=== PATIENT | male | born 1950 | race Caucasian/White ===

== ENCOUNTER 2023-12-10 13:58 | Emergency (ER) | payer OTHER ==
[~2023-12-10] VITALS: Ht 175.3 cm; Wt 69.2 kg
[2023-12-10 14:06] VITALS: BP 145/73; PULSE 72; RESP 16; O2SAT 96
== END 2023-12-10 15:03 | disposition left against medical advice (07) ==
LOC: ER 13:58
DX: Z00.00 Encounter for general adult medical examination without abnormal findings (principal); Z53.21 Procedure and treatment not carried out due to patient leaving prior to being seen by health care provider

== ENCOUNTER 2024-01-08 15:34 | Inpatient (IN) | payer OTHER ==
[~2024-01-08] VITALS: Ht 172.7 cm; Wt 62.5 kg
[2024-01-09] VITALS (7 sets, daily range): BP systolic 113–122; BP diastolic 70–71; PULSE 72–87; RESP 17–18; TEMP 98.3–98.7; O2SAT 96–98
[2024-01-09] MEDS ORDERED: ONDANSETRON HCL 4 MG/2 ML VIAL IV PRN (17:30)
[2024-01-09] MEDS ORDERED: MORPHINE SULFATE INJ 2 MG/ml SYRG IV PRN (17:30)
[2024-01-09] MEDS ORDERED: ACETAMINOPHEN 500 MG TAB PO PRN (17:30)
[2024-01-09] MEDS ORDERED: IPRATROPIUM BROM 0.5 MG/2.5ML INH SOL NEB PRN (17:30)
[2024-01-09] MEDS ORDERED: HYDROcodone-ACET 5/325MG TAB PO PRN (17:30)
[2024-01-09] MEDS ORDERED: ALBUTEROL SULF 2.5 MG/0.5ML(0.5%) NEB SOLN NEB PRN (17:30)
[2024-01-09] MEDS ORDERED: HALOPERIDOL LACTATE 5 MG/ML INJ VIAL IM ONE (22:15)
[2024-01-09] MEDS: HALOPERIDOL LACTATE 5 MG/ML INJ VIAL IM PRN (22:53)
[2024-01-10] VITALS (10 sets, daily range): BP systolic 113–153; BP diastolic 60–74; PULSE 70–93; RESP 16–21; TEMP 98.1–98.7; O2SAT 93–95
[2024-01-10 07:43] LABS: Chloride 105 mmol/L (98-107); Potassium 3.8 mmol/L (3.5-5.1); Sodium 136 mmol/L (136-145)
[2024-01-10 07:44] LABS: Anion Gap 4 (5-15); Calcium 9.4 mg/dL (8.7-10.4); Carbon Dioxide 27 mmol/L (20-30)
[2024-01-10 07:47] LABS: Basophils # (auto) 0 10 ^3/uL (0-0.2); Basophils % (auto) 0.7 % (0.0-2.0); Eosinophils # (auto) 0.3 10 ^3/uL (0-0.8); Eosinophils % (auto) 4.6 % (0.0-7.0); Hematocrit 37.2 % (41.0-53.0); Hemoglobin 13.3 g/dL (13.5-17.5); Lymphocytes # (auto) 1.3 10 ^3/uL (0.4-5.4); Lymphocytes % (auto) 20.2 % (10.0-50.0); Mean Corpuscular Hemoglobin 32.9 pg (28.0-32.0); Mean Corpuscular Hgb Conc. 35.8 g/dL (32.0-36.0); Mean Corpuscular Volume 91.8 fL (80.0-100.0); Monocytes # (auto) 0.6 10 ^3/uL (0-1.3); Neutrophils # (auto) 4.1 10 ^3/uL (1.6-8.6); Neutrophils % (auto) 65.5 % (37.0-80.0); Platelet Count (auto) 293 10^3/uL (140-450); Red Blood Cells 4.05 10^6/uL (4.5-5.90); Red Cell Distribution Width 13.2 % (11.8-14.3); White Blood Cell 6.3 10^3/uL (4.4-10.8)
[2024-01-10 07:49] LABS: Blood Urea Nitrogen 12 mg/dL (9-23); Glucose 94 mg/dL (74-106)
[2024-01-10 09:02] LABS: INR 1.08 (0.9-1.15); Partial Thromboplastin Time 30.5 SEC (24.5-34.5); Prothrombin Time 11.4 sec (9.3-11.8)
[2024-01-10] MEDS ORDERED: ATOR20TA PO (10:39)
[2024-01-10] MEDS ORDERED: LATA0.008 OP (10:39)
[2024-01-10] MEDS: PANTOPRAZOLE 40 MG/10 ML VIAL INJ IV SCH (11:07)
[2024-01-10] MEDS: DOCUSATE SOD 100 MG CAP PO PRN (11:12)
[2024-01-10] MEDS: HALOPERIDOL 5 MG TAB PO PRN (13:21)
[2024-01-10] MEDS: HALOPERIDOL LACTATE 5 MG/ML INJ VIAL IM ONE (13:39)
[2024-01-10] MEDS ORDERED: DORZ2SOL18 EACHEYE (15:25)
[2024-01-10] MEDS ORDERED: LATA0.0020 EACHEYE (15:25)
[2024-01-10] MEDS: DONEPEZIL HYDROCHLORIDE 5 MG TAB PO SCH (17:55)
[2024-01-11] VITALS (12 sets, daily range): BP systolic 113–145; BP diastolic 67–77; PULSE 67–81; RESP 16–19; TEMP 97.4–98.2; O2SAT 93–100
[2024-01-11] MEDS: LEVOTHYROXINE SODIUM 25 MCG TAB PO SCH (06:41)
[2024-01-11 08:02] LABS: Basophils # (auto) 0 10 ^3/uL (0-0.2); Basophils % (auto) 0.7 % (0.0-2.0); Eosinophils # (auto) 0.3 10 ^3/uL (0-0.8); Hematocrit 36.9 % (41.0-53.0); Hemoglobin 12.7 g/dL (13.5-17.5); Mean Corpuscular Hemoglobin 31.4 pg (28.0-32.0); Mean Corpuscular Hgb Conc. 34.3 g/dL (32.0-36.0); Mean Corpuscular Volume 91.6 fL (80.0-100.0); Monocytes # (auto) 0.6 10 ^3/uL (0-1.3); Monocytes % (auto) 11.6 % (0.0-12.0); Neutrophils # (auto) 3.6 10 ^3/uL (1.6-8.6); Neutrophils % (auto) 64.7 % (37.0-80.0); Nucleated Red Blood Cells % 0.1 %; Platelet Count (auto) 283 10^3/uL (140-450); Red Blood Cells 4.03 10^6/uL (4.5-5.90); Red Cell Distribution Width 13.4 % (11.8-14.3); White Blood Cell 5.5 10^3/uL (4.4-10.8)
[2024-01-11 08:15] LABS: Chloride 104 mmol/L (98-107); Potassium 3.7 mmol/L (3.5-5.1); Sodium 135 mmol/L (136-145)
[2024-01-11 08:16] LABS: Anion Gap 6 (5-15); Calcium 9.1 mg/dL (8.7-10.4); Carbon Dioxide 25 mmol/L (20-30)
[2024-01-11 08:21] LABS: BUN/Creatinine Ratio 12.9 (10.0-20.0); Blood Urea Nitrogen 11 mg/dL (9-23); Glucose 102 mg/dL (74-106)
[2024-01-11] MEDS: MEMANTINE HCL 5 MG TAB PO SCH (09:38)
[2024-01-11] MEDS: QUEtiapine FUMARATE 25 MG TAB PO SCH (09:39)
[2024-01-11 11:04] LABS: Amphetamine Screen, Urine Neg (NEGATIVE); Barbiturate Scree,Urine Neg (NEGATIVE); Benzodiazephine Screen, Urine Neg (NEGATIVE); Cannabinoid Screen, Urine Neg (NEGATIVE); Cocaine Screen, Urine Neg (NEGATIVE); Opiate Scree,Urine Neg (NEGATIVE); Phencyclidine Screen, Urine Neg (NEGATIVE)
[2024-01-11 11:06] LABS: Urine Bacteria FEW /hpf (None Seen); Urine Blood 2+ /uL (Negative); Urine Clarity Turbid (Clear); Urine Color Yellow (Yellow); Urine Mucus FEW (None Seen); Urine Protein, UAD 1+ (Negative); Urine Specific Gravity 1.019 (1.001-1.035); Urine Urobilinogen 2 mg/dL (Negative); Urine WBC 50 /hpf (0 - 3); Urine pH 5.5 (5.0-9.0)
[2024-01-12] VITALS (10 sets, daily range): BP systolic 104–129; BP diastolic 57–72; PULSE 66–89; RESP 16–20; TEMP 97.7–98.6; O2SAT 94–100
[2024-01-12] MEDS: PANTOPRAZOLE 40 MG TAB PO SCH (06:03)
[2024-01-12] MEDS: cefTRIAXone 1GM/50ML D5W 50 ML IV SCH (08:19)
[2024-01-12] MEDS: HALOPERIDOL LACTATE 5 MG/ML INJ VIAL IM ONE (12:35)
[2024-01-12] MEDS ORDERED: HALOPERIDOL LACTATE 5 MG/ML INJ VIAL IM PRN (12:45)
[2024-01-13] VITALS (10 sets, daily range): BP systolic 108–142; BP diastolic 53–76; PULSE 66–81; RESP 16–21; TEMP 97.8–98.7; O2SAT 94–99
[2024-01-13] MEDS: AMPICILLIN SOD 2GM INJ 2 GM in SODIUM CHL 0.9% 100 ML IV ONE (09:30)
[2024-01-13 10:06] LABS: PSA Free 0.84 ng/mL; Prostate Specific Antigen 5.2 ng/mL (0.0-4.0)
[2024-01-13] MEDS: AMPICILLIN SOD 2GM INJ 2 GM in SODIUM CHL 0.9% 100 ML IV SCH (10:35)
[2024-01-13] MEDS: QUEtiapine FUMARATE 25 MG TAB PO SCH (10:36)
[2024-01-13] MEDS: levoFLOXacin 500 MG TAB PO SCH (10:36)
[2024-01-13] MEDS: FINASTERIDE 5 MG TAB PO SCH (12:47)
[2024-01-13] MEDS: TAMSULOSIN HYDROCHLORIDE 0.4 MG CAP PO SCH (17:23)
[2024-01-14] VITALS (9 sets, daily range): BP systolic 97–125; BP diastolic 51–64; PULSE 67–86; RESP 15–18; TEMP 97.5–98.4; O2SAT 96–97
[2024-01-14 06:13] LABS: Anion Gap 8 (5-15); Carbon Dioxide 23 mmol/L (20-30); Chloride 105 mmol/L (98-107); Potassium 3.6 mmol/L (3.5-5.1); Sodium 136 mmol/L (136-145)
[2024-01-14 06:19] LABS: BUN/Creatinine Ratio 11.8 (10.0-20.0); Blood Urea Nitrogen 9 mg/dL (9-23); Glucose 110 mg/dL (74-106)
[2024-01-14 06:52] LABS: Calcium 9.2 mg/dL (8.7-10.4)
[2024-01-14] MEDS: AMOXICILLIN/CLAVUL 875 MG TAB PO ONE (16:11)
== END 2024-01-14 19:58 | DRG 726 ==
LOC: WEST WING 01-09 17:54
PROVIDERS: ADMIT Internal Medicine; ATTEND Internal Medicine
DX: N40.1 Benign prostatic hyperplasia with lower urinary tract symptoms (principal); N39.0 Urinary tract infection, site not specified; F02.818 Dementia in other diseases classified elsewhere, unspecified severity, with other behavioral disturbance; G30.9 Alzheimer's disease, unspecified; E78.5 Hyperlipidemia, unspecified; E03.9 Hypothyroidism, unspecified; R33.8 Other retention of urine; Z79.899 Other long term (current) drug therapy; B96.5 Pseudomonas (aeruginosa) (mallei) (pseudomallei) as the cause of diseases classified elsewhere; B95.2 Enterococcus as the cause of diseases classified elsewhere
CPT/HCPCS: 36415; 71045; 74176; 76775; 80048; 80307; 80320; 81001; 82306; 82607; 83036; 83605; 83735; 84154; 84439; 84443; 85025; 85610; 85730; 87086; 87088; 87186; 97110; 97116; 97163; 97530; G0378; J2470